=== PATIENT | female | born 1980 | race African-American/Black ===

== ENCOUNTER 2016-05-17 16:21 | Observation (INO) | payer OTHER ==
--- NOTE | 2016-05-17 16:36 | PDOC ---
History of Present Illness <Diana Toth - Last Filed: 05/17/16 16:36> - General History Source: Patient Exam Limitations: No Limitations - History of Present Illness Initial Comments: 05/17/16 16:38 The patient is a 35 year old female, BIBA with no significant past medical history who presents to the emergency department with intermittent lower back pain for about 2 months. The patient describes her pain as a dull ache that is localized in her mid to right lower back region. She notes often her pain radiates down her buttocks to her right leg whenever she stands or exerts energy. She reports having mild alleviation of her pain with hot showers. She denies any recent injury or trauma to her back. She denies any numbness and tingling to her lower extremities. She denies fever, chills, headache and dizziness. Allergies: NKDA Past surgical history: denies Social history: Nonsmoker. PCP: <Berlin Abdalla - Last Filed: 05/17/16 16:50> <Nicole Juares - Last Filed: 05/18/16 04:02> - General Chief Complaint: Back Pain Stated Complaint: LOWER BACK PAIN Time Seen by Provider: 05/17/16 16:26 Past History - Past Medical History Anemia: No Asthma: No Cancer: No Cardiac Disorders: No CVA: No COPD: No CHF: No Dementia: No Diabetes: No GI Disorders: No Disorders: No HTN: No Hypercholesterolemia: No Liver Disease: No Seizures: No Thyroid Disease: No Other medical history: DENIES. - Surgical History Abdominal Surgery: No Appendectomy: No Cardiac Surgery: No Cholecystectomy: No Lung Surgery: No Neurologic Surgery: No Orthopedic Surgery: Yes (LEFT ACL REPAIR,TENDON REPAIR LEFT THUMB) - Reproductive History (#): 2 Para: 1 Therapeutic (s) & number: No Spontaneous : 0 - Psycho/Social/Smoking Cessation Hx Anxiety: No Suicidal Ideation: No Smoking Status: No Smoking History: Never smoked Number of Cigarettes Smoked Daily: 0 Hx Alcohol Use: Yes Drug/Substance Use Hx: No Substance Use Type: Alcohol Hx Substance Use Treatment: No <Diana Toth - Last Filed: 05/17/16 16:36> <Berlin Abdalla - Last Filed: 05/17/16 16:50> <Nicole Juares - Last Filed: 05/18/16 04:02> - Past Medical History Allergies/Adverse Reactions: Allergies Allergy/AdvReac Type Severity Reaction Status Date / Time No Known Drug Allergies Allergy Verified 05/17/16 16:25 Home Medications: Ambulatory Orders NK [No Known Home Medication] 05/18/16 Review of Systems - Review of Systems Able to Perform ROS?: Yes Comments:: 05/17/16 16:38 GENERAL/CONSTITUTIONAL: No fever or chills. No weakness. HEAD, EYES, EARS, NOSE AND THROAT: No change in vision. No ear pain or discharge. No sore throat. CARDIOVASCULAR: No chest pain or shortness of breath. RESPIRATORY: No cough, wheezing, or hemoptysis. GASTROINTESTINAL: No nausea, vomiting, diarrhea or constipation. GENITOURINARY: No dysuria, frequency, or change in urination. MUSCULOSKELETAL: yes lower back pain. No joint or muscle swelling or pain. No neck pain. SKIN: No rash NEUROLOGIC: No headache, vertigo, loss of consciousness, or change in strength/ sensation. ENDOCRINE: No increased thirst. No abnormal weight change. HEMATOLOGIC/LYMPHATIC: No anemia, easy bleeding, or history of blood clots. ALLERGIC/IMMUNOLOGIC: No hives or skin allergy. <Berlin Abdalla - Last Filed: 05/17/16 16:50> *Physical Exam - Vital Signs Last Vital Signs Temp Pulse Resp BP Pulse Ox 60 18 120/80 05/17/16 16:25 05/17/16 16:25 05/17/16 16:25 <Diana Toth - Last Filed: 05/17/16 16:36> - Vital Signs Last Vital Signs Temp Pulse Resp BP Pulse Ox 60 18 120/80 05/17/16 16:25 05/17/16 16:25 05/17/16 16:25 - Physical Exam Comments: 05/17/16 16:38 GENERAL: Awake, alert, and fully oriented. Appears uncomfortable. HEAD: No signs of trauma EYES: PERRLA, EOMI, sclera anicteric, conjunctiva clear ENT: Auricles normal inspection, hearing grossly normal, nares patent, oropharynx clear without exudates. Moist mucosa NECK: Normal ROM, supple, no lymphadenopathy, JVD, or masses LUNGS: Breath sounds equal, clear to auscultation bilaterally. No wheezes, and no crackles HEART: Regular rate and rhythm, normal S1 and S2, no murmurs, rubs or gallops ABDOMEN: Diffuse abdominal tenderness. Flank tenderness. Soft, normoactive bowel sounds. No guarding, no rebound. No masses EXTREMITIES: Normal range of motion, no edema. No clubbing or cyanosis. No cords, erythema, or tenderness NEUROLOGICAL: Cranial nerves II through XII grossly intact. Normal speech. SKIN: Warm, Dry, normal turgor, no rashes or lesions noted. <Berlin Abdalla - Last Filed: 05/17/16 16:50> - Vital Signs Last Vital Signs Temp Pulse Resp BP Pulse Ox 97.7 F 86 20 108/60 98 05/17/16 19:49 05/17/16 19:49 05/17/16 19:49 05/17/16 19:49 05/17/16 19:49 <Nicole Juares - Last Filed: 05/18/16 04:02> ED Treatment Course - LABORATORY CBC & Chemistry Diagram: 05/17/16 21:19 05/17/16 21:19 - ADDITIONAL ORDERS Additional order review: Laboratory Results 05/17/16 17:01 Urine Color Yellow Urine Appearance Clear Urine pH 7.0 D Ur Specific [place] 1.025 Urine Protein Negative Urine Glucose (UA) Negative Urine Ketones Negative Urine Blood Negative Urine Nitrite Negative Urine Bilirubin Negative Urine Urobilinogen Negative Ur Leukocyte Esterase Negative Urine HCG, Qual Negative - Medications Given in the ED: ED Medications Discontinued Medications Generic Name Dose Route Start Last Admin Trade Name Rajesh PRN Reason Stop Dose Admin Diazepam 5 mg 05/17/16 16:51 05/17/16 17:37 Valium - PO 05/17/16 16:52 5 mg ONCE ONE Administration Ibuprofen 600 mg 05/17/16 16:52 05/17/16 17:37 Motrin - PO 05/17/16 16:53 600 mg ONCE ONE Administration Oxycodone/Acetaminophen 1 combo 05/17/16 16:51 05/17/16 17:37 Percocet 5/325 - PO 05/17/16 16:52 1 combo ONCE ONE Administration <Nicole Juares - Last Filed: 05/18/16 04:02> Medical Decision Making - Medical Decision Making 05/17/16 20:09 Patient Name: Rogelio Phoenix THIS IS A PRELIMINARY REPORT FROM [facility]AL COUNSEL EXAM: CT abdomen and pelvis noncontrast with lumbar spine reformats IMAGES: 896 EXAM DATE AND TIME: 2016-05-17 18:04:53.0 REASON FOR EXAM: Lower back and abdominal pain. Rule out stone COMPARISON: None. FINDINGS: CT abdomen and pelvis- The kidneys are normal in size without hydronephrosis, nephrolithiasis or perinephric stranding. There are no stones visualized along the course of the ureters or within the bladder. The liver is mildly enlarged measuring 18.4 cm in craniocaudal dimension The unenhanced upper abdominal visceral organs are otherwise grossly normal There is no bowel distention A normal appendix is visualized There is a left adnexal/ovarian cystic structure measuring 2.2 cm. Consider further evaluation with ultrasound as clinically warranted No free air or free fluid Linear densities in the superficial soft tissues of the anterior abdominal wall in addition 2 linear densities and multiple nodular densities in the soft tissues of both buttocks. Findings can be seen in the setting of prior liposuction surgery. Correlate clinically CT lumbar spine- There is no fracture. No subluxation Bony alignment is normal The vertebral body heights and disc spaces are preserved Mild endplate deformities in the endplates of L5 and S1 and sclerotic changes in the inferior endplate of L5, likely chronic degenerative Mild sclerotic changes about the bilateral sacroiliac joints No destructive osseous lesions The paraspinal soft tissues are unremarkable THIS DOCUMENT HAS BEEN ELECTRONICALLY SIGNED 05/18/16 03:59 Pt comes with back pain and although all imaging studies are normal, pt insists that she has right flank pain and that she cannot move well, and that she has intractable pain. We checked blood tests and everything is normal. Pt remains with pain despite IV morphine and toradol and muscle relaxants. She will be admitted to Observation under the hospitalist service; her PMD is Dr. Blount <Nicole Juares - Last Filed: 05/18/16 04:02> *DC/Admit/Observation/Transfer <Diana Toth - Last Filed: 05/17/16 16:36> - Attestations Scribe Attestion: 05/17/16 16:39 Documentation prepared by Berlin Abdalla, acting as medical records technician for Diana Toth MD. <Berlin Abdalla - Last Filed: 05/17/16 16:50> - Discharge Dispostion Admit: Yes <Nicole Juares - Last Filed: 05/18/16 04:02> Diagnosis at time of Disposition: Back pain, Inability to walk, Intractable back pain - Discharge Dispostion Condition at time of disposition: Improved - Referrals - Post Discharge Activity
[2016-05-17] MEDS ORDERED: OXYCODONE/APAP 5/325MG COMBO TABLET PO ONE (16:51)
[2016-05-17] MEDS ORDERED: diazePAM 5 MG TABLET PO ONE (16:51)
[2016-05-17] MEDS ORDERED: IBUPROFEN 600 MG TABLET (FP) PO ONE ×2 (16:52→17:34)
[2016-05-17 17:27] LABS: URINE APPEARANCE CLEAR; URINE BILIRUBIN NEGATIVE (NEGATIVE); URINE BLOOD NEGATIVE (NEGATIVE); URINE COLOR YELLOW; URINE GLUCOSE (UA) NEGATIVE (NEGATIVE); URINE KETONE NEGATIVE (NEGATIVE); URINE LEUK ESTERASE NEGATIVE (NEGATIVE); URINE NITRITE NEGATIVE (NEGATIVE); URINE PROTEIN NEGATIVE (NEGATIVE); URINE UROBILINOGEN NEGATIVE E.U./dl (0.2-1.0)
[2016-05-17] MEDS ORDERED: OXYCODONE/APAP 5/325MG COMBO TABLET ONE (17:34)
[2016-05-17] MEDS ORDERED: diazePAM 5 MG TABLET ONE (17:35)
[2016-05-17] MEDS ORDERED: KETOROLAC TROMETHAMINE 30 MG/1 ML VIAL IVPUSH ONE (21:01)
[2016-05-17] MEDS ORDERED: SODIUM CHLORIDE 0.9% 500 ML INFUS.BAG IV ONE (21:10)
[2016-05-17] MEDS ORDERED: morphine CARPU-JECT 2 MG/1 ML DISP.SYRIN IVPUSH ONE (21:11)
[2016-05-17] MEDS ORDERED: morphine CARPU-JECT 2 MG/1 ML DISP.SYRIN ONE (21:32)
[2016-05-17 21:49] LABS: BASOPHIL 0.6 % (0-2.0); EOSINOPHIL 3.3 % (0-4.5); MCH 30.2 pg (25.7-33.7); MCHC 33.5 g/dl (32.0-36.0); MEAN CELL VOLUME 90.1 fl (80-96); MEAN PLT VOLUME 7.6 fl (7.5-11.1); NEUTROPHILS 41.7 % (42.8-82.8); PLATELET COUNT 267 K/MM3 (134-434); RDW 14.5 % (11.6-15.6); WHITE BLOOD COUNT 6.5 K/mm3 (4.0-10.0)
[2016-05-17 22:15] LABS: ALBUMIN 3.3 g/dl (3.4-5.0); AMYLASE 78 U/L (25-115); ANION GAP 8 (8-16); CALCIUM 8.4 mg/dL (8.5-10.1); CO2 27 mmol/L (21-32); CREATININE 0.7 mg/dL (0.55-1.02); GLUCOSE,RANDOM 82 mg/dL (74-106); SGPT/ALT 19 U/L (12-78)
[2016-05-17 22:17] LABS: ALK PHOS 45 U/L (45-117); BILIRUBIN,TOTAL 0.3 mg/dL (0.2-1.0); TOT PROT 6.9 g/dl (6.4-8.2)
[2016-05-17 22:23] LABS: SGOT/AST 26 U/L (15-37)
--- NOTE | 2016-05-17 22:43 | PN ---
<William Mane - Last Filed: 05/17/16 22:42> Teaching Attending Note Name of Resident: Lizz Hughes ATTENDING PHYSICIAN STATEMENT I saw and evaluated the patient. I reviewed the resident's note and discussed the case with the resident. I agree with the resident's findings and plan as documented. SUBJECTIVE: OBJECTIVE: ASSESSMENT AND PLAN: <Concepción Mejia - Last Filed: 05/17/16 23:45> Teaching Attending Note ATTENDING PHYSICIAN STATEMENT I saw and evaluated the patient. I reviewed the resident's note and discussed the case with the resident. I agree with the resident's findings and plan as documented. SUBJECTIVE: Patient is a 35 year old female with no significant PMHx who presents with intermittent lower back pain for two months. Patient states the pain began suddenly and the first time it happened it took her 3 hours to get out of bed. This morning, the severe back pain happened again and she called 911. Patient reports that she recently traveled to [place] and returned 4 days ago and she was able to perform her daily activities with no issue on her trip. LMP was this month. Surgical Hx: Liposuction last year, carpal tunnel Social Hx: Occasional Hookah Allergies: NKDA OBJECTIVE: Last Vital Signs Temp Pulse Resp BP Pulse Ox 97.7 F 86 20 108/60 98 05/17/16 19:49 05/17/16 19:49 05/17/16 19:49 05/17/16 19:49 05/17/16 19:49 GENERAL: Awake, alert, and fully oriented, in no acute distress HEENT: Atraumatic. PERRLA, EOMI. Moist mucosa. No JVD LUNGS: No distress, speaks full sentences, clear to auscultation bilaterally HEART: Regular rate and rhythm, normal S1 and S2, no murmurs, rubs or gallops, peripheral pulses normal and equal bilaterally. ABDOMEN: Soft, nontender, normoactive bowel sounds. No guarding, no rebound. No masses EXTREMITIES: Right straight leg raising test positive. Left is normal. Muscle strength +5/5 upper and lower extremities. Sensation intact. NEUROLOGICAL: Cranial nerves II through XII grossly intact. Normal speech, no focal sensorimotor deficits SKIN: Warm, Dry, normal turgor, no rashes or lesions noted. CBCD WBC 6.5 K/mm3 (4.0-10.0) 05/17/16 21:19 RBC 3.82 M/mm3 (3.60-5.2) 05/17/16 21:19 Hgb 11.5 GM/dL (10.7-15.3) 05/17/16 21:19 Hct 34.4 % (32.4-45.2) 05/17/16 21:19 MCV 90.1 fl (80-96) 05/17/16 21:19 MCHC 33.5 g/dl (32.0-36.0) 05/17/16 21:19 RDW 14.5 % (11.6-15.6) D 05/17/16 21:19 Plt Count 267 K/MM3 (134-434) 05/17/16 21:19 MPV 7.6 fl (7.5-11.1) 05/17/16 21:19 CMP Sodium 137 mmol/L (136-145) 05/17/16 21:19 Potassium 4.5 mmol/L (3.5-5.1) D 05/17/16 21:19 Chloride 102 mmol/L (98-107) 05/17/16 21:19 Carbon Dioxide 27 mmol/L (21-32) 05/17/16 21:19 Anion Gap 8 (8-16) 05/17/16 21:19 BUN 14 mg/dL (7-18) D 05/17/16 21:19 Creatinine 0.7 mg/dL (0.55-1.02) 05/17/16 21:19 Creat Clearance w eGFR > 60 (>60) 05/17/16 21:19 Calcium 8.4 mg/dL (8.5-10.1) L 05/17/16 21:19 Total Bilirubin 0.3 mg/dL (0.2-1.0) D 05/17/16 21:19 AST 26 U/L (15-37) D 05/17/16 21:19 ALT 19 U/L (12-78) 05/17/16 21:19 Alkaline Phosphatase 45 U/L (45-117) D 05/17/16 21:19 Total Protein 6.9 g/dl (6.4-8.2) 05/17/16 21:19 Albumin 3.3 g/dl (3.4-5.0) L 05/17/16 21:19 CT abdomen and pelvis- The kidneys are normal in size without hydronephrosis, nephrolithiasis or perinephric stranding. There are no stones visualized along the course of the ureters or within the bladder. The liver is mildly enlarged measuring 18.4 cm in craniocaudal dimension The unenhanced upper abdominal visceral organs are otherwise grossly normal There is no bowel distention A normal appendix is visualized There is a left adnexal/ovarian cystic structure measuring 2.2 cm. Consider further evaluation with ultrasound as clinically warranted No free air or free fluid Linear densities in the superficial soft tissues of the anterior abdominal wall in addition 2 linear densities and multiple nodular densities in the soft tissues of both buttocks. Findings can be seen in the setting of prior liposuction surgery. Correlate clinically CT lumbar spine- There is no fracture. No subluxation Bony alignment is normal The vertebral body heights and disc spaces are preserved Mild endplate deformities in the endplates of L5 and S1 and sclerotic changes in the inferior endplate of L5, likely chronic degenerative Mild sclerotic changes about the bilateral sacroiliac joints No destructive osseous lesions The paraspinal soft tissues are unremarkable ASSESSMENT AND PLAN: 35 yo F with no PMHx who presents with intractable low back pain. 1. Intractable low back pain -Toradol PRN -Neurologically intact -MRI not indicated at this time -Flexeril DVT ppx Low risk ambulate Place in observation Documentation prepared by Concepción Mejia, acting as medical assistant dermatology for William Mane M.D.
--- NOTE | 2016-05-17 23:39 | HP ---
CHIEF COMPLAINT: Severe back pain PCP: Dr. Mine Banerjee HISTORY OF PRESENT ILLNESS: 35 year old female presented to the ED via EMS after she had severe back pain limiting her to even slight movement. A/c to the patient, she developed back pain 2 months ago, occurred suddenly after she woke up in the morning was unable to get up, took three hours to get into the shower. Pain decreased after she took hot shower. Since then she has been having back pain on/off, mostly on her lower back, radiating towards her right side but not to her legs, denied tingling, numbness on her feet at that time. She visited Dr. Blount 2 weeks ago, had a urinalysis done showing RBC's, was sent for USG abdomen which was benign. Patient mentions she came back 4 days ago from a short vacation to [place]. During that time she was able to swim and do strenous activities. Since 3 days, she started having lower back pain, progressively getting worse, and since this morning experienced radiation towards her right thigh, numbness and tinging in her right leg. This morning, she couldn't get up and had to call 911. Patient has been taking Phentermine since 10 days for weight loss. Has had liposuction done one year ago. Patient mentioned that she didn't have abdominal pain until she came to the ED. She realized she had abdominal tenderness only during physical exam. Denies burning urination, increased frequency or incontinence Reports to have constipation since many years, has to take lactulose for bowel movement, last bowel movement was yesterday. Denies headache, fever, chest pain, sob, cough, palpitation, nausea or vomiting. No h/o trauma to her back. LMP- May 07, 2016 ER course was notable for: (1) CBC, CMP, UA (2) Lumbar spine CT, Abdominal/Pelvis CT (3) Morphine, Ibuprofen, Percocet, Ketorolac, Valium Recent Travel: None PAST MEDICAL HISTORY: None PAST SURGICAL HISTORY: Liposuction done last year, ACL repair of left knee, carpal tunnel release 3 yrs ago Social History: Lives with one son (4 yrs) Smoking: Smokes Hookah occasionally. Alcohol: Occasional Drugs: No use of illicit drug use Occupation: management trainee marketing Family History: Unknown Allergies No Known Drug Allergies Allergy (Verified 01/29/17 16:25) HOME MEDICATIONS: Taking Phentermine since 10 days. REVIEW OF SYSTEMS CONSTITUTIONAL: Absent: fever, chills, diaphoresis, generalized weakness, malaise, loss of appetite, weight change HEENT: Absent: rhinorrhea, nasal congestion, throat pain, throat swelling, difficulty swallowing, mouth swelling, ear pain, eye pain, visual changes CARDIOVASCULAR: Absent: chest pain, syncope, palpitations, irregular heart rate, lightheadedness , peripheral edema RESPIRATORY: Absent: cough, shortness of breath, dyspnea with exertion, orthopnea, wheezing, stridor, hemoptysis GASTROINTESTINAL: Absent: abdominal pain, abdominal distension, nausea, vomiting, diarrhea, constipation, melena, hematochezia GENITOURINARY: Absent: dysuria, frequency, urgency, hesitancy, hematuria, flank pain, genital pain MUSCULOSKELETAL: Present: Back pain Absent: myalgia, arthralgia, joint swelling, neck pain SKIN: Absent: rash, itching, pallor HEMATOLOGIC/IMMUNOLOGIC: Absent: easy bleeding, easy bruising, lymphadenopathy, frequent infections ENDOCRINE: Absent: unexplained weight gain, unexplained weight loss, heat intolerance, cold intolerance NEUROLOGIC: Absent: headache, focal weakness or paresthesias, dizziness, unsteady gait, seizure, mental status changes, bladder or bowel incontinence PSYCHIATRIC: Absent: anxiety, depression, suicidal or homicidal ideation, hallucinations. PHYSICAL EXAMINATION GENERAL: Moderately built female, lying in bed in supine position, Awake, alert , and fully oriented, in no acute distress. HEAD: Normal with no signs of trauma. EYES: EOM intact, no pallor or icterus EARS, NOSE, THROAT: Ears normal. Moist mucous membranes. NECK: Supple. LUNGS: Breath sounds equal, clear to auscultation bilaterally. No wheezes, and no crackles. No accessory muscle use. HEART: Regular rate and rhythm, normal S1 and S2 without murmur, rub or gallop. ABDOMEN: Soft, tender on superficial palpation +, not distended, normoactive bowel sounds, no guarding, no rebound, no masses. No hepatomegaly or splenomegaly. MUSCULOSKELETAL: Normal range of motion at all joints. No bony deformities or tenderness. No CVA tenderness. UPPER EXTREMITIES: 2+ pulses, warm, well-perfused. No cyanosis. No clubbing. Cap refill <2 seconds. No peripheral edema. LOWER EXTREMITIES: 2+ pulses, warm, well-perfused. No calf tenderness. No peripheral edema. NEUROLOGICAL: Cranial nerves II-XII intact. Bulk, tone, power 5/5, reflexes normal. Right Straight leg raising test positive. Normal speech. Normal gait. PSYCHIATRIC: Cooperative. Good eye contact. Appropriate mood and affect. SKIN: Warm, dry, normal turgor, no rashes or lesions noted. CT abdomen and pelvis- The kidneys are normal in size without hydronephrosis, nephrolithiasis or perinephric stranding. There are no stones visualized along the course of the ureters or within the bladder. The liver is mildly enlarged measuring 18.4 cm in craniocaudal dimension The unenhanced upper abdominal visceral organs are otherwise grossly normal There is no bowel distention A normal appendix is visualized There is a left adnexal/ovarian cystic structure measuring 2.2 cm. Consider further evaluation with ultrasound as clinically warranted No free air or free fluid Linear densities in the superficial soft tissues of the anterior abdominal wall in addition 2 linear densities and multiple nodular densities in the soft tissues of both buttocks. Findings can be seen in the setting of prior liposuction surgery. Correlate clinically CT lumbar spine- There is no fracture.No subluxation. Bony alignment is normal. The vertebral body heights and disc spaces are preserved. Mild endplate deformities in the endplates of L5 and S1 and sclerotic changes in the inferior endplate of L5, likely chronic degenerative. Mild sclerotic changes about the bilateral sacroiliac joints No destructive osseous lesions. The paraspinal soft tissues are unremarkable ASSESSMENT/PLAN: 35 year old female no past medical history presented to the ED via EMS after she had severe back pain limiting her to even slight movement. # Back pain most likely due to muscle spams vs sciatica Patient presented with severe back pain, aggravated after coming back from [place], did strenous activities, swimming and pain got worse. 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 CT abdomen pending # FEN Not on IV fluids Electrolytes WNL. Corrected calcium 8.96 Regular diet # Prophylaxis For DVT-Early ambulation, no need for SCDs or heparin For GI- Not indicated # Code Status- Full code # Dispo: Placed in observation Illness, Investigation and Plan of care explained to the patient. He verbalized understanding. Case seen and discussed with Dr. Mane. Visit type - Emergency Visit Emergency Visit: Yes ED Registration Date: 05/17/16 Care time: The patient presented to the Emergency Department on the above date and was hospitalized for further evaluation of their emergent condition. - New Patient This patient is new to me today: Yes Date on this admission: 05/17/16 - Critical Care Critical Care patient: No
[2016-05-17] MEDS ORDERED: CYCLOBENZAPRINE HCL 10 MG TABLET (FP) PO PRN (23:43)
[2016-05-18] MEDS: KETOROLAC TROMETHAMINE 15 MG/ML VIAL IVPUSH PRN ×2 (03:48→13:04)
[2016-05-18 04:05] VITALS: BMI 32.7
[2016-05-18 07:21] LABS: MCH 30.6 pg (25.7-33.7); MCHC 33.6 g/dl (32.0-36.0); MEAN CELL VOLUME 91.2 fl (80-96); MEAN PLT VOLUME 7.3 fl (7.5-11.1); PLATELET COUNT 218 K/MM3 (134-434); RDW 14.2 % (11.6-15.6); WHITE BLOOD COUNT 4.9 K/mm3 (4.0-10.0)
[2016-05-18 07:56] LABS: CALCIUM 8.1 mg/dL (8.5-10.1)
[2016-05-18 07:58] LABS: CREATININE 0.6 mg/dL (0.55-1.02)
--- NOTE | 2016-05-18 10:17 | EKG ---
Test Reason : Blood Pressure : / mmHG Vent. Rate : 079 BPM Atrial Rate : 079 BPM P-R Int : 206 ms QRS Dur : 084 ms QT Int : 374 ms P-R-T Axes : 067 074 056 degrees QTc Int : 428 ms NORMAL SINUS RHYTHM NORMAL ECG WHEN COMPARED WITH ECG OF 16-AUG-2012 17:47, T WAVE INVERSION NOW EVIDENT IN ANTERIOR LEADS Confirmed by VIRGINIA CINTRON MD ([id number]) on 05/18/2016 10:17:38 AM Referred By: Confirmed By:VIRGINIA CINTRON MD
--- NOTE | 2016-05-18 16:20 | DS ---
Physical Exam: SUBJECTIVE: Patient seen and examined at bedside. STill has pain with exertion at her back. Was able to walk 40 feet with PT independently. Pt denies N/V/F/C , CP, SOB, abd pain. She states she is agreeable to plan of action of seeing orthopedic for L4-L5 disc bulge noted on CT. OBJECTIVE: Vital Signs Temperature 98.1 F 05/18/16 14:58 Pulse Rate 80 05/18/16 14:58 Respiratory Rate 20 05/18/16 14:58 Blood Pressure 115/67 05/18/16 14:58 O2 Sat by Pulse Oximetry (%) 99 05/18/16 12:00 PHYSICAL EXAM GENERAL: The patient is awake, alert, and fully oriented, in no acute distress. HEAD: Normal with no signs of trauma. EYES: PERRL, extraocular movements intact, sclera anicteric, conjunctiva clear. ENT: Ears normal, nares patent, oropharynx clear without exudates, moist mucous membranes. NECK: Trachea midline, full range of motion, supple. LUNGS: Breath sounds equal, clear to auscultation bilaterally, no wheezes, no crackles, no accessory muscle use. HEART: Regular rate and rhythm, S1, S2 without murmur, rub or gallop. ABDOMEN: Soft, nontender, nondistended, normoactive bowel sounds, no guarding, no rebound, no hepatosplenomegaly, no masses. EXTREMITIES: 2+ pulses, warm, well-perfused, no edema. R straight leg raise with pain at back at 15-20 degrees. NEUROLOGICAL: Cranial nerves II through XII grossly intact. Normal speech, gait not observed. PSYCH: Normal mood, normal affect. SKIN: Warm, dry, normal turgor, no rashes or lesions noted. LABS Laboratory Results - last 24 hr 05/18/16 05/18/16 05:52 05:52 WBC 4.9 RBC 3.66 Hgb 11.2 Hct 33.4 MCV 91.2 MCHC 33.6 RDW 14.2 Plt Count 218 MPV 7.3 L Sodium 141 Potassium 4.0 Chloride 107 Carbon Dioxide 25 Anion Gap 9 BUN 12 Creatinine 0.6 Random Glucose 94 Calcium 8.1 L HOSPITAL COURSE: Date of Admission:05/17/16 Date of Discharge: 05/18/16 35 y/o F w/ no sig PMH presented to the ER after having intermittent back pain in right lower back for last 2 months worse with exertion and relieved with rest. Was recently in [place] for vacation and was able to swim and do all activities without issue. [place]ame back to [place] last week and symptoms restarted. before presenting to the ER she developed new symptoms of tingling and numbness down right thigh. Pt is currently on phentermine for weight loss and has hx of liposuction one year ago. She currently feels without pain at rest. Pt was able to ambulate 40 feet independently with PT. She was found to have L4-L5 disc bulging; L5-S1 right subarticular/foraminal disc protrusion, right neural foramen stenosis on CT Lumbar spine. Pt was given morphine, valium, ibuprofen, toradol, and flexeril, all of which did not help her as per patient. Pt was told physical therapy is highly recommended and to see an orthopedic doctor for her back and pain. She was agreeable to the plan. She will be sent home with a prescription for flexeril 10 mg PO bid PRN for muscle spasms. Minutes to complete discharge: 35 Discharge Summary Reason For Visit: INTRACTABLE BACK PAIN Current Active Problems Back pain (Acute) Inability to walk (Acute) Intractable back pain (Acute) Condition: Improved - Instructions Diet, Activity, Other Instructions: Please follow up with your primary care doctor, Dr. Blount within 1 week. You will need to see an Orthopedic doctor, Dr. Cook, within the week for the findings on your CT of the spine: "Straightening of lumbosacral spine is observed on the sagittal reconstruction images Normal height the vertebral bodies. No evidence of compression deformities, spondylolisthesis or spondylolysis. Normal bony spinal canal. Intact pedicles. No evidence of lytic or blastic lesions. Normal facet joints, spinous processes, transverse processes. Symmetrical psoas muscles. L4-L5. Suggestion of the circumferential disc bulge. L5-S1. Right subarticular/ foraminal disc protrusion is suggested. Right neural foramen stenosis. Clinically correlate with radiculopathy in distribution of the right L5, S1 nerves. Sclerotic changes are noted in the inferior endplate of L5 Well demarcated sclerotic changes are noted in T12 vertebral body - right paracentral region with spondylosis." They will also be able to help with your pain. Physical therapy is also highly recommended for your back. You have been prescribed flexeril 10 mg to take twice a day as needed. Please consult with your primary care or orthopedic for further pain management. Referrals: Alyssa Blount MD [Primary Care Provider] - 1 Week Michael Cook MD [Staff Physician] - (orthopedic spine surgeon) Disposition: HOME - Home Medications Comprehensive Discharge Medication List: Ambulatory Orders Cyclobenzaprine HCl [Flexeril -] 10 mg PO BID PRN #10 tablet 05/18/16 Miscellaneous Drug Not In Syst [Outpatient Lab Test] 1 each ASDIR #1 misc This patient is new to me today: Yes Date on this admission: 05/18/16 Emergency Visit: Yes ED Registration Date: 05/17/16 Care time: The patient presented to the Emergency Department on the above date and was hospitalized for further evaluation of their emergent condition. Critical Care patient: No - Discharge Referral Referred to [facility] No
--- NOTE | 2016-05-18 16:34 | PN ---
Teaching Attending Note Name of Resident: Quoc Kaur ATTENDING PHYSICIAN STATEMENT I saw and evaluated the patient. I reviewed the resident's note and discussed the case with the resident. I agree with the resident's findings and plan as documented. SUBJECTIVE:c/o back pain which is limiting her ability to move. states this has been intermittent over the past month, worsened the past week. only on exertion in the lower back with radiation down the R leg. states she came back a week ago from trip abroad where she she had no pain and was very active doing sports. 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 denies numbness/tingling of the extremities, falls, LOC, CP or SOB OBJECTIVE: Last Vital Signs Temp Pulse Resp BP Pulse Ox 98.1 F 80 20 115/67 99 05/18/16 14:58 05/18/16 14:58 05/18/16 14:58 05/18/16 14:58 05/18/16 12:00 General NAD Back no bony point tenderness along the spine, muscle spasms R lumbar region, no muscular point tenderness. negative SLR B/L. pedal pulses intact B/L ASSESSMENT AND PLAN: 35 yo F wtih PMH morbid obesity presented to the ER and was admitted for further evalutation of their emergent condition 1. Intractable back pain- no relief with morphine given. dose of flexeril administered this morning with some relief. PT eval. if able to ambulate will need to f/u with ortho as outpatient for MRI for further evaluation. would benefit from outpatient PT 2. Morbid obesity- counseled on importance of diet to aid in weight loss as this will likely aid in her pain. 3. d/c home on flexeril prn with home PT and orthopedic follow up
[2016-05-18 17:49] VITALS: BP 112/63; PULSE 86; TEMP 98.4
== END 2016-05-18 18:30 | disposition home or self-care (01) ==
LOC: JER 16:21 → JERBED 22:55 → J7W 05-18 03:20
PROVIDERS: ADMIT Internal Medicine; ATTEND Internal Medicine
DX: M54.5 Low back pain (principal); E66.01 Morbid (severe) obesity due to excess calories; Z68.32 Body mass index [BMI] 32.0-32.9, adult; Z71.3 Dietary counseling and surveillance
CPT/HCPCS: 36415; 72131-TC; 74176; 80048; 80053; 81003; 82150; 83690; 84703; 85025; 85027; 93005; 93010; 97116-GP; 97162-PG; 99285-25; G0378

== ENCOUNTER 2019-11-06 20:08 | Emergency (ER) | payer OTHER ==
[2019-11-06 20:23] VITALS: BMI 29.9
--- NOTE | 2019-11-06 20:25 | PDOC ---
Rapid Medical Evaluation Chief Complaint: Back Pain Time Seen by Provider: 11/06/19 20:20 Medical Evaluation: Allergies Allergy/AdvReac Type Severity Reaction Status Date / Time No Known Drug Allergies Allergy Verified 05/17/16 16:25 11/06/19 20:21 39 year old female c/o left lower back pain radiating to left leg x 10 days. patient is c/o left leg swelling. patient is c/o chest tightness pain worse with movement and palpation. PE: patient alert ox3. A: back pain; chest pain P: US leg pain Discharge Disposition - Diagnosis Left leg swelling Back pain Qualifiers: Back pain location: low back pain Chronicity: acute Back pain laterality: left Sciatica presence: with sciatica Sciatica laterality: sciatica of left side Qualified Code(s): M54.42 - Lumbago with sciatica, left side - Referrals - Patient Instructions - Post Discharge Activity
--- NOTE | 2019-11-06 21:27 | PDOC ---
History of Present Illness - History of Present Illness Initial Comments: 11/06/19 21:22 39 y/o F w/o CM presents for evaluation of L knee pain x10 days increased today associated with LBP and now CP x 2 weeks. No recent surgery, no hx of CA, no b;leeding or clotting issues. <Garcia Alfaro - Last Filed: 11/06/19 23:06> <Emily Junior - Last Filed: 11/07/19 01:17> - General Chief Complaint: Pain, Acute Stated Complaint: LT LEG SWOLLEN Time Seen by Provider: 11/06/19 20:20 Past History - Medical History Anemia: No Asthma: No Cancer: No Cardiac Disorders: No CVA: No COPD: No CHF: No Dementia: No Diabetes: No GI Disorders: No Disorders: No HTN: No Hypercholesterolemia: No Liver Disease: No Seizures: No Thyroid Disease: No - Surgical History Abdominal Surgery: Yes (Liposuction) Appendectomy: No Cardiac Surgery: No Cholecystectomy: No Lung Surgery: No Neurologic Surgery: No Orthopedic Surgery: Yes (LEFT ACL REPAIR,TENDON REPAIR LEFT THUMB) - Reproductive History (#): 2 Para: 1 Therapeutic (s) & number: No Spontaneous : 0 - Psycho-Social/Smoking History Smoking Status: No Smoking History: Current some day smoker Have you smoked in the past 12 months: No Number of Cigarettes Smoked Daily: 6 Information on smoking cessation initiated: No - Substance Abuse Hx (Audit-C & DAST Scrn) How often the patient has a drink containing alcohol: Monthly or less Number of drinks the patient has on a typical day: 1 or 2 How often the patient has six or more drinks on one occasion: Less than monthly Score: In Men: 4 or > Positive; In Women: 3 or > Positive: 2 Screen Result (Pos requires Nsg. Audit-10AR): Negative In the last yr the pt used illegal drug/Rx for NonMed reason: No Score: Yes response is considered Positive: 0 Screen Result (Positive result requires Nsg. DAST-10): Negative <Garcia Alfaro - Last Filed: 11/06/19 23:06> <Emily Junior - Last Filed: 11/07/19 01:17> - Medical History Allergies/Adverse Reactions: Allergies Allergy/AdvReac Type Severity Reaction Status Date / Time No Known Drug Allergies Allergy Verified 05/17/16 16:25 Home Medications: Ambulatory Orders Cyclobenzaprine HCl [Flexeril -] 10 mg PO BID PRN #10 tablet 05/18/16 Miscellaneous Drug Not In Syst [Outpatient Lab Test] 1 each ASDIR #1 misc 05/18/16 Ibuprofen 600 mg PO QID PRN #20 tablet 11/06/19 Review of Systems - Review of Systems Constitutional: No: Chills, Fever, Malaise, Night Sweats Cardiac (ROS): Yes: Chest Pain Musculoskeletal: Yes: Back Pain, Joint Pain <Garcia Alfaro - Last Filed: 11/06/19 23:06> *Physical Exam - Vital Signs Last Vital Signs Temp Pulse Resp BP Pulse Ox 98.3 F 104 H 19 111/68 100 11/06/19 20:18 11/06/19 20:18 11/06/19 20:18 11/06/19 20:18 11/06/19 20:18 - Physical Exam 11/06/19 22:03 GENERAL: The patient is awake, alert, and fully oriented, in no acute distress. HEAD: Normal with no signs of trauma. EYES: sclera anicteric, conjunctiva clear. ENT: Ears normal tympanic membranes normal oropharynx clear uvula midline NECK: Normal range of motion LUNGS: Breath sounds equal, clear to auscultation bilaterally. No wheezes, and no crackles. HEART: S1 and S2 without murmur, rub or gallop. ABDOMEN: Soft, nontender, normoactive bowel sounds. No guarding, no rebound. No masses. EXTREMITIES: Normal range of motion, no edema. No clubbing or cyanosis. No cords, erythema, or tenderness. NEUROLOGICAL: Cranial nerves II through XII grossly intact. PSYCH: Normal mood, normal affect. SKIN: Warm, Dry, normal turgor, no rashes or lesions noted. Left knee skin color and temperature normal swelling about the left knee large intra-articular effusion range of motion 0-90 without pain beyond 90 causes pain. Normal skin color and temperature. No evidence of instability thigh and calf are soft and nontender neurovascular intact negative straight leg raise test. 11/06/19 23:06 There is tenderness about the costochondral junction of ribs 3 and 4 on the left. <Garcia Alfaro - Last Filed: 11/06/19 23:06> - Vital Signs Last Vital Signs Temp Pulse Resp BP Pulse Ox 98.0 F 92 H 18 105/65 100 11/06/19 21:15 11/06/19 21:15 11/06/19 21:15 11/06/19 21:15 11/06/19 21:15 <Emily Junior - Last Filed: 11/07/19 01:17> ED Treatment Course - ADDITIONAL ORDERS Additional order review: Laboratory Results 11/06/19 23:25 Fluid Source Synovial Fluid WBC 659 Fluid RBC 4391 <Emily Junior - Last Filed: 11/07/19 01:17> Medical Decision Making - Medical Decision Making 11/06/19 22:04 Under aseptic technique 5 cc of 1% lidocaine without epinephrine was injected into the subcutaneous tissue about the lateral peripatellar area of the left knee. 60 cc of serosanguineous fluid were aspirated and sent to the lab for cell count crystals Gram stain and culture. A dry sterile dressing was placed and this was tolerated well. A compressive Georges wrap was placed as well. 11/06/19 23:06 Costochondritis left knee effusion follow-up with Ortho anti-inflammatories for pain 11/06/19 23:06 I have reviewed the pathophysiology with the patient. They are in agreement with the treatment plan all questions were answered to their satisfaction. Understanding for follow-up without fail was also conveyed to the patient. Again they are in agreement. <Garcia Alfaro - Last Filed: 11/06/19 23:06> Discharge - Discharge Information Problems reviewed: Yes - Admission No <Garcia Alfaro - Last Filed: 11/06/19 23:06> <Emily Junior - Last Filed: 11/07/19 01:17> - Discharge Information Clinical Impression/Diagnosis: Left leg swelling, Effusion, left knee, Costochondral chest pain Back pain Qualifiers: Back pain location: low back pain Chronicity: acute Back pain laterality: left Sciatica presence: with sciatica Sciatica laterality: sciatica of left side Qualified Code(s): M54.42 - Lumbago with sciatica, left side Condition: Improved Disposition: HOME - Additional Discharge Information Prescriptions: Ibuprofen 600 mg PO QID PRN #20 tablet PRN Reason: Pain - Follow up/Referral Referrals: Araceli Herman MD [Staff Physician] - Robert Phipps DO [Staff Physician] - - Patient Discharge Instructions Additional Instructions: Without fail follow-up with orthopedic surgery in 1 to 2 days for further evaluation and treatment options for your left knee pain. Also without fail follow-up with internal medicine in 1 to 2 days for further evaluation of your costochondral chest pain. Tylenol Motrin as directed for pain and return to the emergency room should symptoms worsen.
--- NOTE | 2019-11-06 21:54 | PDOC ---
*Physical Exam - Vital Signs Last Vital Signs Temp Pulse Resp BP Pulse Ox 98.3 F 104 H 19 111/68 100 11/06/19 20:18 11/06/19 20:18 11/06/19 20:18 11/06/19 20:18 11/06/19 20:18 Medical Decision Making - Medical Decision Making 11/06/19 21:54 Patient seen by the advanced practice provider under my supervision. Ancillary testing reviewed as necessary. I agree with plan as outlined by the advanced practice provider. Discharge - Discharge Information Problems reviewed: Yes Clinical Impression/Diagnosis: Left leg swelling, Effusion, left knee, Costochondral chest pain Back pain Qualifiers: Back pain location: low back pain Chronicity: acute Back pain laterality: left Sciatica presence: with sciatica Sciatica laterality: sciatica of left side Qualified Code(s): M54.42 - Lumbago with sciatica, left side Condition: Improved Disposition: HOME - Additional Discharge Information Prescriptions: Ibuprofen 600 mg PO QID PRN #20 tablet PRN Reason: Pain - Follow up/Referral Referrals: Robert Phipps DO [Staff Physician] - Araceli Herman MD [Staff Physician] - - Patient Discharge Instructions Additional Instructions: Without fail follow-up with orthopedic surgery in 1 to 2 days for further evaluation and treatment options for your left knee pain. Also without fail follow-up with internal medicine in 1 to 2 days for further evaluation of your costochondral chest pain. Tylenol Motrin as directed for pain and return to the emergency room should symptoms worsen. - Post Discharge Activity
[2019-11-07 00:19] VITALS: BP 105/65; PULSE 92; TEMP 98
[2019-11-07 00:44] LABS: BF WBC & OTHER NUCLEATED CELLS 659 /mm3
[2019-11-07 03:08] LABS: BODY FLUID MACROPHAGES 41 %; BODY FLUID MESOTHELIAL 23 %; BODY FLUID MONOCYTE 4 %; BODYL FLD EOSINOPHIL 1 %
--- NOTE | 2019-11-07 13:14 | EKG ---
Test Reason : Blood Pressure : / mmHG Vent. Rate : 097 BPM Atrial Rate : 097 BPM P-R Int : 182 ms QRS Dur : 084 ms QT Int : 332 ms P-R-T Axes : 073 072 050 degrees QTc Int : 421 ms NORMAL SINUS RHYTHM POSSIBLE LEFT ATRIAL ENLARGEMENT BORDERLINE ECG WHEN COMPARED WITH ECG OF 17-MAY-2016 23:27, NO SIGNIFICANT CHANGE WAS FOUND Confirmed by Jerry Stevenson ([id number]) on 11/07/2019 1:14:09 PM Referred By: Confirmed By:Jerry Stevenson
== END 2019-11-06 23:40 | disposition home or self-care (01) ==
LOC: JER 20:08
DX: M54.42 Lumbago with sciatica, left side (principal); R22.42 Localized swelling, mass and lump, left lower limb; M25.462 Effusion, left knee; R07.1 Chest pain on breathing
CPT/HCPCS: 36415; 84560; 86666; 86753; 87205; 87476; 89060; 93005; 93010; 93971-TC; 99285-25